=== PATIENT | male | born 1995 | race Two or more races ===

== ENCOUNTER 2017-11-07 03:30 | Inpatient (IN) | payer OTHER ==
[~2017-11-07] VITALS: Ht 188 cm; Wt 140.3 kg
[2017-11-07 04:51] LABS: HEMATOCRIT 43.5 % (38.0-50.0); HEMOGLOBIN 14.5 G/DL (12.5-16.6); MCH 29.9 PG (29.0-34.0); MCHC 33.3 G/DL (30.0-36.0); MCV 89.7 FL (86-99); PLATELET COUNT 243 K/uL (156-360); RBC DIS.WIDTH-CV 12.2 % (11.8-14.6); RBC DIS.WIDTH-SD 40.4 % (39-53); RED BLOOD COUNT 4.85 M/uL (4.00-5.50)
[2017-11-07 05:09] LABS: APPEARANCE SL.HAZY ((CLEAR)); BILIRUBIN NEGATIVE; BLOOD NEGATIVE; COLOR YELLOW ((YELLOW)); GLUCOSE (STRIP) NEGATIVE; KETONES 20; LEUKOCYTES NEGATIVE; NITRITE NEGATIVE; PROTEIN (STRIP) 30; SPECIFIC GRAVITY 1.024 (1.000-1.030)
[2017-11-07 05:12] LABS: BACTERIA RARE /HPF; EPITHELIAL CELLS RARE /HPF; HYALINE CASTS 0-5 /LPF; MUCUS 4+ /LPF; RED BLOOD CELLS 0-5 /HPF (0-5); UCUL ADDED? NO; WHITE BLOOD CELLS 0-5 /HPF (0-5)
[2017-11-07 05:14] LABS: ALBUMIN 4.3 g/dL (3.2-4.8); CHLORIDE 105 mEq/L (99-109); POTASSIUM 4.4 mEq/L (3.7-5.4); SODIUM 139 mEq/L (136-147)
[2017-11-07 05:17] LABS: GLUCOSE 146 mg/dL (70-99); TOTAL PROTEIN 7.2 g/dL (6.4-8.3)
[2017-11-07 05:19] LABS: TOTAL BILIRUBIN 0.6 mg/dL (0.0-1.0)
[2017-11-07 05:20] LABS: ALKALINE PHOSPHATASE 73 IU/L (3-129); CREATININE 1.1 mg/dL (0.6-1.3); GFR ESTIMATE (CALCULATED) > 59 mL/min/ (58.99-99999)
[2017-11-07 05:21] LABS: UREA NITROGEN (BUN) 8 mg/dL (9-23)
[2017-11-07 05:22] LABS: AST (GOT) 14 IU/L (2-34)
[2017-11-07 05:23] LABS: ALT (GPT) 18 IU/L (3-49)
[2017-11-07 05:24] LABS: LIPASE 18 U/L (1.0-51.0)
[2017-11-07] MEDS ORDERED: NORCO 5/3251 TABLET PO (08:07)
[2017-11-07 08:36] LABS: INTER. NORMALIZED RATIO 1.2
[2017-11-07 08:45] LABS: TROP-I INTERPRETATION NEGATIVE; TROPONIN-I < 0.01 ng/mL (0.0-0.30)
[2017-11-07 10:25] VITALS: BP 122/63
[2017-11-07 12:26] VITALS: BP 127/67
[2017-11-07 15:45] VITALS: BP 136/69
[2017-11-07 20:16] VITALS: BP 126/78
[2017-11-07 23:10] VITALS: BP 144/74
[2017-11-08 02:33] LABS: HEMOGLOBIN 14.2 G/DL (12.5-16.6); MCHC 33.8 G/DL (30.0-36.0); MCV 88.6 FL (86-99); PLATELET COUNT 207 K/uL (156-360); RBC DIS.WIDTH-CV 12.3 % (11.8-14.6); RBC DIS.WIDTH-SD 39.7 % (39-53); RED BLOOD COUNT 4.74 M/uL (4.00-5.50); WHITE BLOOD COUNT 9.4 K/uL (4.1-10.2)
[2017-11-08 03:07] VITALS: BP 132/78
[2017-11-08 08:00] VITALS: BP 128/59
[2017-11-08] MEDS ORDERED: XARELTO20 MG PO (10:34)
[2017-11-08] MEDS ORDERED: XARELTO15 MG PO (10:34)
[2017-11-08] MEDS ORDERED: ZOFRAN ODT4 MG PO (10:35)
[2017-11-08] MEDS ORDERED: ENDOCET 5-3251 EACH PO (10:35)
[2017-11-09 13:44] LABS: HEMOGLOBIN A1c (GLYCOHEMOGLOB) 5.6 % (Below 5.7)
== END 2017-11-08 13:44 | disposition home or self-care (01) | DRG 176 ==
LOC: EME 03:30 → EDOF 08:42 → ENRESERV 08:44 → 4EAST 10:22
PROVIDERS: Emergency Medicine; Family Medicine
DX: I26.99 Other pulmonary embolism without acute cor pulmonale (principal); F17.200 Nicotine dependence, unspecified, uncomplicated; E66.01 Morbid (severe) obesity due to excess calories; F12.90 Cannabis use, unspecified, uncomplicated; I51.89 Other ill-defined heart diseases; Z68.39 Body mass index [BMI] 39.0-39.9, adult; D72.829 Elevated white blood cell count, unspecified
CPT/HCPCS: 71275; 74176; 80053; 81003; 81240 90; 83036; 83090 90; 83690; 84484; 85027; 85240 90; 85300 90; 85303 90; 85305 90; 85306 90; 85379; 85610; 85613 90; 85730; 85730 90; 86146 90; 86147 90; 93005; 93306; 93970; 99281; 99285; J2405; J3010; J7030

== ENCOUNTER 2017-11-13 01:01 | Emergency (ER) | payer OTHER ==
[~2017-11-13] VITALS: Ht 188 cm; Wt 140.2 kg
[~2017-11-13 01:01] MED LIST: ENDOCET 5-3251 EACH PO; NORCO 5/3251 TABLET PO; XARELTO15 MG PO; XARELTO20 MG PO; ZOFRAN ODT4 MG PO
[2017-11-13 01:43] LABS: HEMATOCRIT 43.5 % (38.0-50.0); HEMOGLOBIN 14.2 G/DL (12.5-16.6); MCH 29.4 PG (29.0-34.0); MCHC 32.6 G/DL (30.0-36.0); MCV 90.1 FL (86-99); RBC DIS.WIDTH-CV 11.9 % (11.8-14.6); RBC DIS.WIDTH-SD 39.5 % (39-53); RED BLOOD COUNT 4.83 M/uL (4.00-5.50); WHITE BLOOD COUNT 7.4 K/uL (4.1-10.2)
[2017-11-13 01:51] LABS: PLATELET COUNT 333 K/uL (156-360)
[2017-11-13 01:54] LABS: ALBUMIN 4.1 g/dL (3.2-4.8); CHLORIDE 104 mEq/L (99-109); POTASSIUM 4.5 mEq/L (3.7-5.4); SODIUM 142 mEq/L (136-147)
[2017-11-13 01:56] LABS: GLUCOSE 98 mg/dL (70-99)
[2017-11-13 01:57] LABS: TOTAL PROTEIN 7.9 g/dL (6.4-8.3)
[2017-11-13 01:58] LABS: INTER. NORMALIZED RATIO 1.7; TOTAL BILIRUBIN 0.5 mg/dL (0.0-1.0)
[2017-11-13 02:00] LABS: CREATININE 1.1 mg/dL (0.6-1.3); GFR ESTIMATE (CALCULATED) > 59 mL/min/ (58.99-99999); PTT 44.2 SEC (25-37)
[2017-11-13 02:01] LABS: UREA NITROGEN (BUN) 11 mg/dL (9-23)
[2017-11-13 02:02] LABS: DIRECT BILIRUBIN 0.3 mg/dL (0.0-0.3)
[2017-11-13 02:52] LABS: ALKALINE PHOSPHATASE 101 IU/L (3-129); ALT (GPT) 106 IU/L (3-49); AST (GOT) 43 IU/L (2-34)
[2017-11-13 04:13] VITALS: BP 124/70
== END 2017-11-13 04:14 | disposition home or self-care (01) ==
LOC: EME 01:01
PROVIDERS: Physician Assistant
DX: R04.2 Hemoptysis (principal); Z86.711 Personal history of pulmonary embolism; Z79.01 Long term (current) use of anticoagulants
CPT/HCPCS: 71046; 80048; 80076; 85027; 85610; 85730; 99281; 99285